=== PATIENT | female | born 1985 | race Caucasian/White ===

== ENCOUNTER 2021-10-29 12:48 | Inpatient (IN) | payer BC ==
[2021-10-29 13:17] VITALS: BMI 30.4
[2021-10-29] MEDS ORDERED: hydrALAZINE 20 MG/ML VIAL SLOW IVP PRN ×2 (13:35→17:09)
[2021-10-29] MEDS ORDERED: Bicitra 30 ML UDCUP PO PRN (13:35)
[2021-10-29] MEDS ORDERED: Promethazine HCl 25 MG/ML VIAL IM PRN ×3 (13:35→17:09)
[2021-10-29] MEDS ORDERED: Famotidine/PF 20 mg/2ml Vial SLOW IVP PRN (13:35)
[2021-10-29] MEDS ORDERED: Ondansetron PF 4 MG/2 ML Vial IVP PRN ×3 (13:35→17:09)
[2021-10-29] MEDS ORDERED: Morphine PF 10 MG/10 ML VIAL ONE (13:42)
[2021-10-29] MEDS ORDERED: ePHEDrine Sulfate 50 MG/10 ML VIAL ONE (13:43)
[2021-10-29] MEDS ORDERED: ceFAZolin 2 GM/Dextrose 50 ML 2 GM in Premix Bag 1 BAG IVPB SCH (13:45)
[2021-10-29] MEDS ORDERED: Lactated Ringer's 1,000 ML IV SCH ×2 (13:45)
[2021-10-29 14:08] LABS: Hemoglobin 12.8 g/dL (12.0-15.5); Mean Corpuscular HGB CONC 32.9 g/dL (32.0-36.0); Mean Corpuscular Hemoglobin 28.1 pg (27.0-33.0); Mean Corpuscular Volume 85.3 fl (81.6-98.3); Mean Platelet Volume 12.5 fl (7.4-10.4); Platelet Count 216 10x3/uL (150-450); RBC Distribution Width 14.8 % (11.5-14.5); Red Blood Cell (RBC) Count 4.56 10x6/uL (3.90-5.03); White Blood Cell (WBC) Count 11.1 10x3/uL (3.5-10.5)
[2021-10-29] MEDS ORDERED: PHENYLEPHRINE-NS 100 MCG/ML 10 ML SYRINGE ONE (14:12)
[2021-10-29] MEDS ORDERED: Oxytocin 10 UNITS/ML VIAL ONE (14:14)
[2021-10-29] MEDS ORDERED: Naloxone HCl 0.4 mg/ml Vial IVP PRN ×2 (14:51)
[2021-10-29] MEDS ORDERED: Ondansetron HCl/PF 4 MG/2 ML Vial IVP PRN (14:51)
[2021-10-29] MEDS ORDERED: Meperidine HCl/PF 25 MG/ML VIAL SLOW IVP PRN (14:51)
[2021-10-29] MEDS ORDERED: Promethazine HCl 25 MG SUPP PR PRN (14:51)
[2021-10-29] MEDS ORDERED: Fentanyl 100 MCG/2 ML VIAL SLOW IVP PRN (14:51)
[2021-10-29] MEDS ORDERED: diphenhydrAMINE 50 MG/ML VIAL IVP PRN (14:51)
[2021-10-29] MEDS ORDERED: Naloxone HCl 0.4 mg/ml Vial IV PRN (14:51)
[2021-10-29] MEDS ORDERED: Moisturizing Cream (Eucerin) 113 GM JAR TOP PRN (14:51)
[2021-10-29] MEDS ORDERED: Ketorolac Tromethamine 30 MG/ML VIAL IVP SCH (15:00)
[2021-10-29] MEDS ORDERED: Communication Order-Pharmacy FS SCH (15:00)
[2021-10-29 15:01] LABS: Syphilis Antibody Nonreactive (Nonreactive); Syphilis Antibody Index 0.04 S/CO (<1.00 Non-Reactive)
[2021-10-29 15:02] LABS: Hep B Surf Ag Non-Reactive S/CO (NonReactive)
[2021-10-29 15:11] LABS: HBSAg Index 0.22 S/CO (0-0.99)
[2021-10-29] MEDS: Ketorolac Tromethamine 30 MG/ML VIAL IVP PRN ×2 (15:13→21:00)
[2021-10-29] MEDS ORDERED: NS w/ Oxytocin 30 units 500 ML ONE (15:14)
[2021-10-29 15:22] LABS: SARS-CoV-2 NAA Rapid Test Not Detected (NotDetected)
[2021-10-29] MEDS ORDERED: Oxytocin 30 UNITS in Sodium Chloride 0.9% 500 ML IVPB PRN (15:47)
[2021-10-29] MEDS ORDERED: Oxytocin 30 UNITS in Sodium Chloride 0.9% 500 ML IVPB SCH (16:00)
[2021-10-29 16:43] LABS: HIV (1/2) Antibody/Antigen Non-Reactive (NonReactive)
[2021-10-29] MEDS ORDERED: Acetaminophen 325 MG TAB PO PRN (17:09)
[2021-10-29] MEDS ORDERED: Boostrix 0.5 ML (Tdap) VIAL IM ONE (17:09)
[2021-10-29] MEDS ORDERED: diphenhydrAMINE 25 MG CAP PO PRN (17:09)
[2021-10-29] MEDS ORDERED: Simethicone Chewable 80 MG TAB PO PRN (17:09)
[2021-10-29] MEDS ORDERED: Lanolin Ointment 7 GM TUBE TOP PRN (17:09)
[2021-10-29] MEDS ORDERED: Bisacodyl 10 MG SUPP PR PRN (17:09)
[2021-10-29] MEDS: Docusate 100 MG CAP PO SCH (20:59)
[2021-10-30] MEDS: Ferrous Sulfate 325 MG TAB PO SCH ×2 (00:07→09:37)
[2021-10-30] MEDS ORDERED: Zolpidem Tartrate 5 MG TAB PO PRN ×2 (03:00→22:26)
[2021-10-30 04:00] LABS: Hemoglobin 10.2 g/dL (12.0-15.5); Mean Corpuscular Hemoglobin 27.4 pg (27.0-33.0); Mean Corpuscular Volume 85.8 fl (81.6-98.3); Mean Platelet Volume 12.4 fl (7.4-10.4); Platelet Count 169 10x3/uL (150-450); RBC Distribution Width 14.6 % (11.5-14.5); Red Blood Cell (RBC) Count 3.72 10x6/uL (3.90-5.03); White Blood Cell (WBC) Count 9.5 10x3/uL (3.5-10.5)
[2021-10-30] MEDS: Ketorolac Tromethamine 30 MG/ML VIAL IVP PRN (05:31)
[2021-10-30] MEDS: Docusate 100 MG CAP PO SCH ×2 (10:48→21:20)
[2021-10-30] MEDS: Prenatal Vitamin 1 TAB PO SCH (10:48)
[2021-10-30] MEDS: HYDROcodone/Acetaminophen 5/325 mg Tablet PO PRN ×4 (10:48→22:49)
[2021-10-30] MEDS: Ibuprofen 800 MG TAB PO SCH ×2 (13:08→21:20)
[2021-10-31] MEDS: HYDROcodone/Acetaminophen 5/325 mg Tablet PO PRN ×2 (03:44→09:32)
[2021-10-31 04:50] VITALS: TEMP 98
[2021-10-31] MEDS: Ibuprofen 800 MG TAB PO SCH (06:34)
[2021-10-31 07:58] VITALS: BP 122/77
[2021-10-31] MEDS: Ferrous Sulfate 325 MG TAB PO SCH (08:44)
[2021-10-31] MEDS: Prenatal Vitamin 1 TAB PO SCH (09:13)
[2021-10-31] MEDS: Docusate 100 MG CAP PO SCH (09:13)
== END 2021-10-31 10:25 | disposition home or self-care (01) | DRG 788 ==
LOC: CSHLD/OP 12:48 → CSHLD 14:36 → CSHPP 17:46
PROVIDERS: ADMIT Student in an Organized Health Care Education/Training Program; ATTEND Student in an Organized Health Care Education/Training Program
PROC: 10D00Z1 Extraction of Products of Conception, Low, Open Approach (ICD-10-PCS; principal; 2021-10-29)
DX: O36.8130 Decreased fetal movements, third trimester, not applicable or unspecified (principal); O34.211 Maternal care for low transverse scar from previous cesarean delivery; O76 Abnormality in fetal heart rate and rhythm complicating labor and delivery; O36.5930 Maternal care for other known or suspected poor fetal growth, third trimester, not applicable or unspecified; Z3A.34 34 weeks gestation of pregnancy; Z37.0 Single live birth; Z20.822 Contact with and (suspected) exposure to COVID-19; P02.5 Newborn affected by other compression of umbilical cord
CPT/HCPCS: 36415; 51702; 85027; 85460; 86780; 86850; 86900; 86901; 87340; 87389; 88307; 99285; J0690; J1885; J2274; J2590; J7120; U0002